=== PATIENT | male | born 1970 | race Two or more races ===

== ENCOUNTER 2025-10-23 12:51 | Emergency (ER) | payer OTHER ==
[~2025-10-23] VITALS: Ht 177.8 cm; Wt 100.0 kg
--- NOTE | 2025-10-23 13:03 | ED.PDOC ---
History of Present Illness HPI Comments 55-year-old male BIBA with the chief complaint of a mechanical fall. EMS report that the patient had a mechanical slip and fall of the possible high of 4 ft and was called out due from the patient having left arm pain and obvious deformity to the area. EMS state that the patient was picked up at work has in originally state on the pain being a 10/10 on the pain scale but was given 100 mikes of fentanyl and is currently 6/10 on the pain scale. Denies any other symptoms at this time. Denies chills, fever, N/V/D, SOB, CP. No other associated symptoms, modifiers, recent injuries or sick contacts present at this time. Time Seen by MD: 13:00 Reviewed Notes: Nurses Notes, Data Analytics Chief Scientist Notes, Medications, Allergies Allergies: Coded Allergies: NO KNOWN ALLERGIES (Unverified , 10/23/25) Information Source: Patient, Emergency Med Personnel Mode of Arrival: EMS Severity: Moderate Timing: Minutes Duration: Since onset, Minutes Prehospital treatment: Pain Meds (100 mikes of fentanyl) Past Medical History PAST MEDICAL HISTORY: Denies Surgical History: Denies all surgeries Family History Family History: Reviewed,noncontributory to illness, Unknown Social History Smoker: Non-Smoker Alcohol: Denies ETOH Use Drugs: Denies Drug Use Lives In: Home Constitutional: denies: chills, diaphoresis, fatigue, fever, malaise, sweats, weakness, others EENTM: denies: blurred vision, double vision, ear bleeding, ear discharge, ear drainage, ear pain, ear ringing, eye pain, eye redness, hearing loss, mouth pain, mouth swelling, nasal discharge, nose bleeding, nose congestion, nose pain, photophobia, tearing, throat pain, throat swelling, voice changes, others Respiratory: denies: cough, hemoptysis, orthopnea, SOB at rest, shortness of breath, SOB with excertion, stridor, wheezing, others Cardiovascular: denies: chest pain, dizzy spells, diaphoresis, Dyspnea on exertion, edema, irregular heart beat, left arm pain, lightheadedness, palpitations, PND, syncope, others Gastrointestinal: denies: abdomen distended, abdominal pain, blood streaked bowels, constipated, diarrhea, dysphagia, difficulty swallowing, hematemesis, melena, nausea, poor appetite, poor fluid intake, rectal bleeding, rectal pain, vomiting, others Genitourinary: denies: burning, dysuria, flank pain, frequency, hematuria, incontinence, penile discharge, penile sore, pain, testicle pain, testicle swelling, urgency, others Neurological: denies: dizziness, fainting, headache, left sided numbness, left sided weakness, numbness, paresthesia, pre-existing deficit, right sided numbness, right sided weakness, seizure, speech problems, tingling, tremors, weakness, others Musculoskeletal: reports: others (Left elbow pain and obvious deformity); denies: back pain, gout, joint pain, joint swelling, muscle pain, muscle st iffness, neck pain Integumetry: denies: bruises, change in color, change in hair/nails, dryness, laceration, lesions, lumps, rash, wounds, others Allergic/Immunocompromised: denies: Difficulty Healing, Frequent Infections, Hives, Itching, others Hematologic/Lymphatic: denies: anemia, blood clots, easy bleeding, easy bruising, swollen glands, others Endocrine: denies: excessive hunger, excessive sweating, excessive thirst, excessive urination, flushing, intolerance to cold, intolerance to heat, unexplained weight gain, unexplained weight loss, others Psychiatric: denies: anxiety, bipolar disorder, depression, hopeless, panic disorder, schizophrenia, sleepless, suicidal, others All Other Systems: Reviewed and Negative Physical Exam General Appearance: Moderate Distress HEENT: Normal ENT Inspection, Pharynx Normal, TMs Normal Neck: Full Range of Motion, Non-Tender, Normal, Normal Inspection Respiratory: Chest Non-Tender, Lungs Clear, No Accessory Muscle Use, No Respiratory Distress, Normal Breath Sounds Cardiovascular: No Edema, No JVD, No Murmur, No Gallop, Normal Peripheral Pulses, Regular Rate/Rhythm Breast Exam: Deferred Gastrointestinal: No Organomegaly, Non Tender, No Pulsatile Mass, Normal Bowel Sounds, Soft Genitalia: Deferred Pelvic: Deferred Rectal: Deferred Extremities: No calf tenderness, Normal capillary refill, No pedal edema, Tender (Left elbow with tenderness, swelling and deformity) Musculoskeletal : Apperance: Normal Neurologic: Alert, compliance representative dealer II-XII nml as Tested, No Motor Deficits, Normal Affect, Normal Mood, No Sensory Deficits Cerebellar Function: Normal Reflexes: Normal Skin: Dry, Normal Color, Warm Lymphatic: No Adenopathy Was a procedure done? Was a procedure done?: Yes Sedation Sedation?: Yes Informed consent obtained: Yes Sedation start time: 14:58 Sedation end time: 15:03 Sedation total time: 5 minutes Reduction Indication: Dislocation (Left elbow) Intra-articular anesthetic garth: No Post-reduction x-ray show: Reduction, Good Alignment Informed consent obtained: Yes Risks/benefits/alt described: Yes Differential Dx Considerations may include: Left elbow dislocation X-Ray, Labs, Meds, VS Vital Signs Date Time Temp Pulse Resp B/P (MAP) Pulse Ox O2 Delivery O2 Flow Rate FiO2 10/23/25 13:31 97 Room Air* 0 21 10/23/25 13:29 97.5 79 14 130/90 (103) 96 97.5 10/23/25 13:25 79 14 96 Room Air* 0 21 10/23/25 13:01 97.9 86 17 117/74 98 97.9 Current Medications Medications (Trade) Dose Ordered Sig/Riaz Route Start Time Stop Time Status Last Admin Etomidate 20 mg ONCE ONCE IV 10/23/25 13:45 10/23/25 13:46 DC 10/23/25 14:47 X-ray of the left elbow with a initially done and shows a left elbow dislocation After the procedure was done, the patient had an x-ray which shows the elbow to be in normal alignment. The patient is discharged and told to take ibuprofen at home. The patient will return to the emergency department's condition worsens. The patient was placed in a sling The patient is to follow up with the orthopedic surgeon through their industrial medicine clinic or their primary care doctor Images Reviewed?: Images reviewed and evaluated by me Time of 1ST Reevaluation: 13:30 Reevaluation 1ST: Unchanged Time of 2ND Reevaluation: 15:41 Reevaluation 2ND: Resolved Patient Education/Counseling: Diagnosis, Treatment, Prognosis, Need For Follow Up Family Education/Counseling: No Family Present SEPSIS Sepsis Screen Physician Orders L Elbow 3 View Xray (10/23/25 13:00) Heplock Iv (10/23/25 13:41) Machine Farmworker (10/23/25 13:41) Blood Pressure (10/23/25 13:41) Pulse Oximetry (10/23/25 13:41) L Elbow 2 View Xray (10/23/25 14:59) Vital Signs Date Time Temp Pulse Resp B/P (MAP) Pulse Ox O2 Delivery O2 Flow Rate FiO2 10/23/25 13:31 97 Room Air* 0 21 10/23/25 13:29 97.5 79 14 130/90 (103) 96 97.5 10/23/25 13:25 79 14 96 Room Air* 0 21 10/23/25 13:01 97.9 86 17 117/74 98 97.9 Medications Medications Dose Ordered Sig/Riaz Route Start Time Stop Time Status Last Admin Dose Admin Etomidate 20 mg ONCE ONCE IV 10/23/25 13:45 10/23/25 13:46 DC 10/23/25 14:47 Departure 1 Departure Time of Disposition: 15:42 Impression: Primary Impression: Dislocation of left elbow Qualified Codes: S53.105A - Unspecified dislocation of left ulnohumeral joint, initial encounter Disposition: HOME / SELF CARE / HOMELESS Condition: Fair Discharged With: Self Critical Care Note Critical Care Time?: No Stability Stability form required: No Heart Score Heart Score: Heart Score Response (Comments) Value History N/A 0 EKG N/A 0 Age N/A 0 Risk Factors N/A 0 Troponin N/A 0 Total 0 I personally scribed for MANI DIETZ MD ([email or web address]) on 10/23/25 at 13:03. Electronically submitted by Ru Ordaz ([email or web address]). MANI DIETZ MD Oct 23, 2025 13:03
[2025-10-23 13:25] VITALS: PULSE 79; RESP 14; O2SAT 96
[2025-10-23 13:29] VITALS: TEMP 97.5
--- NOTE | 2025-10-23 14:16 | DVH ---
CLINICAL INDICATION: trauma TECHNIQUE: 2 radiographic views of the right elbow were obtained. COMPARISON: None FINDINGS/IMPRESSION: Radius and ulna are displaced posterior to the humerus. Findings are consistent with dislocation with no acute fracture noted at this time.
[2025-10-23] MEDS: ETOMIDATE (2MG/ML) 20ML VIAL IV ONE (14:47)
--- NOTE | 2025-10-23 15:34 | DVH ---
INDICATION: post left humerus reduction TECHNIQUE: XY L ELBOW 2 VIEW XRAYXY Comparison: None FINDINGS/IMPRESSION: There is an elbow joint effusion. There is ossific fragment along the distal posterior humerus near the olecranon measuring mm likely representing a supracondylar humeral fracture fragment.
[2025-10-23 15:45] VITALS: BP 151/96; RESP 17; O2SAT 97
[2025-10-23 16:00] VITALS: PULSE 87
== END 2025-10-23 16:35 | disposition home or self-care (01) ==
LOC: EDBD 12:51 → ER 12:51
DX: S53.105A Unspecified dislocation of left ulnohumeral joint, initial encounter (principal); Z88.5 Allergy status to narcotic agent; W01.0XXA Fall on same level from slipping, tripping and stumbling without subsequent striking against object, initial encounter; Y93.89 Activity, other specified; Y92.89 Other specified places as the place of occurrence of the external cause; Y99.0 Civilian activity done for income or pay
CPT/HCPCS: 24600; 73070; 73080